=== PATIENT | female | born 1985 | race Caucasian/White ===

== ENCOUNTER 2017-01-13 01:21 | Emergency (ER) | payer OTHER ==
[~2017-01-13] VITALS: Ht 162.6 cm; Wt 48.1 kg
[2017-01-13] MEDS ORDERED: TRAZODONE 100 MG TABLET (01:34)
[2017-01-13] MEDS ORDERED: ACETAMINOPHEN ES 500 MG TABLET PO ONE (02:00)
[2017-01-13] MEDS ORDERED: DIAZEPAM 2 MG TABLET PO ONE (02:00)
[2017-01-13] MEDS ORDERED: DIAZEPAM 5 MG TABLET ONE (02:12)
[2017-01-13] MEDS ORDERED: ACETAMINOPHEN ES 500 MG TABLET ONE (02:13)
--- NOTE | 2017-01-13 02:20 | NUR ---
Pt ambulated to room with steady gait. Pt seen by Dr. Walker. EKG obtained. Pt medicated for anxiety. Pt stable for discharge per MD. Pt given ACI. Pt verbalized understanding of dc instructions. 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
[2017-01-13 02:34] VITALS: BP 115/72
== END 2017-01-13 02:35 | disposition home or self-care (01) ==
LOC: ER 01:21
DX: F41.9 Anxiety disorder, unspecified (principal); R06.00 Dyspnea, unspecified; R07.9 Chest pain, unspecified; R20.9 Unspecified disturbances of skin sensation; F13.239 Sedative, hypnotic or anxiolytic dependence with withdrawal, unspecified
CPT/HCPCS: 93005; A4663